=== PATIENT | female | born 2000 | race Caucasian/White ===

== ENCOUNTER 2020-11-07 18:38 | Outpatient (CLI) | payer OTHER ==
[~2020-11-07] VITALS: Ht 162.6 cm; Wt 52.6 kg
[2020-11-07 19:23] LABS: MICROSCOPIC INDICATED
[2020-11-07] MEDS ORDERED: NITR100C56 PO (19:50)
== END 2020-11-07 20:11 | disposition home or self-care (01) ==
LOC: LDOP 18:38
PROVIDERS: ATTEND Obstetrics & Gynecology
DX: O26.892 Other specified pregnancy related conditions, second trimester (principal); N39.0 Urinary tract infection, site not specified; Z3A.21 21 weeks gestation of pregnancy
CPT/HCPCS: 81001; 87086; 99211; G0463

== ENCOUNTER 2021-03-16 17:10 | Inpatient (IN) | payer OTHER ==
[~2021-03-16] VITALS: Ht 160 cm; Wt 41.2 kg
[~2021-03-16 17:10] MED LIST: NITR100C56 PO
[2021-03-16 17:30] VITALS: BP 128/85
[2021-03-16] MEDS ORDERED: D5%-LACTATED RINGERS 1,000 ML IV SCH (19:00)
[2021-03-16] MEDS ORDERED: SODIUM CITRATE/CITRIC ACID 30 ML UDC PO PRN (19:00)
[2021-03-16] MEDS ORDERED: CALCIUM CARBONATE 500 MG TAB.CHEW PO PRN (19:00)
[2021-03-16] MEDS ORDERED: TERBUTALINE 1 MG/ML, 1ML SQ PRN (19:00)
[2021-03-16] MEDS ORDERED: FENTANYL PF 100 MCG/2ML IV PRN (19:00)
[2021-03-16] MEDS ORDERED: METOCLOPRAMIDE 5 MG/ML, 2ML IVPush PRN (19:00)
[2021-03-16] MEDS ORDERED: TERBUTALINE 1 MG/ML, 1ML IVPush PRN (19:00)
[2021-03-16] MEDS ORDERED: OXYTOCIN 30U/ 0.9% NaCL 500ML 500 ML IV ONE (19:00)
[2021-03-16] MEDS ORDERED: OXYTOCIN 30U/ 0.9% NaCL 500ML 500 ML IV PRN (19:00)
[2021-03-16] MEDS ORDERED: ONDANSETRON 2MG/ML, 2ML IVPush PRN (19:00)
[2021-03-16] MEDS ORDERED: LACTATED RINGERS 1,000 ML IV SCH (19:00)
[2021-03-16 19:14] LABS: BASOPHILS % (AUTO) 0 % (0-1); EOSINOPHILS % (AUTO) 2 % (1-7); LYMPHOCYTES % (AUTO) 14 % (22-44); MEAN CORPUSCULAR HEMOGLOBIN 28.8 pg (27.0-34.8); MEAN CORPUSCULAR HGB CONC 32.9 g/dL (32.4-35.8); MEAN PLATELET VOLUME 7.9 fL (7.4-10.4); MONOCYTES % (AUTO) 6 % (2-9); NEUTROPHILS % (AUTO) 78 % (42-75); PLATELET COUNT 335 x10^3/uL (130-400); RED BLOOD COUNT 3.84 x10^6/uL (3.82-5.3); RED CELL DISTRIBUTION WIDTH 14.7 % (9.6-15.2)
[2021-03-16] MEDS ORDERED: NEWBORN KIT ONE (20:48)
[2021-03-16] MEDS ORDERED: LIDOCAINE 1%, 20ML ONE (20:48)
[2021-03-16] MEDS ORDERED: MISOPROSTOL 200 MCG TABLET ONE (20:48)
[2021-03-16] MEDS ORDERED: PNV1TAB.5 PO (21:33)
[2021-03-17] MEDS: FENTANYL PF 100 MCG/2ML IVPush PRN ×2 (07:53→09:05)
[2021-03-17] MEDS ORDERED: FENTANYL/BUPIV./NS/PF 250 ML EPIDCONT ONE (09:24)
[2021-03-17] MEDS ORDERED: BUPIVACAINE 0.25% ONE (09:25)
[2021-03-17] MEDS ORDERED: FENTANYL/BUPIV./NS/PF 250 ML EPIDCONT SCH (09:30)
[2021-03-17] MEDS ORDERED: NALOXONE 0.4 MG/ML, 1ML IVPush PRN (09:30)
[2021-03-17] MEDS ORDERED: EPHEDRINE 50 MG/ML, 1ML IVPush PRN (09:30)
[2021-03-17] MEDS ORDERED: LACTATED RINGERS 1,000 ML IVBOLUS PRN (09:30)
[2021-03-17] MEDS ORDERED: OXYcodone/APAP 5/325MG TABLET PO PRN ×2 (14:30)
[2021-03-17] MEDS ORDERED: MISOPROSTOL 200 MCG TABLET PR PRN (14:30)
[2021-03-17] MEDS ORDERED: ACETAMINOPHEN 325 MG TABLET PO PRN ×2 (14:30)
[2021-03-17] MEDS ORDERED: ONDANSETRON 2MG/ML, 2ML IV PRN (14:30)
[2021-03-17] MEDS ORDERED: SIMETHICONE 80 MG CHEW TAB PO PRN (14:30)
[2021-03-17] MEDS ORDERED: IBUPROFEN 600 MG TABLET PO PRN (14:30)
[2021-03-17] MEDS: OXYTOCIN 30U/ 0.9% NaCL 500ML 500 ML IV SCH (15:40)
[2021-03-17 16:15] VITALS: BP 107/70
[2021-03-17] MEDS ORDERED: CALCIUM CARBONATE 500 MG TAB.CHEW PO PRN (20:30)
[2021-03-17] MEDS: DOCUSATE 100 MG CAPSULE PO PRN (20:34)
[2021-03-17 20:45] VITALS: BP 120/77
[2021-03-17] MEDS: LACTATED RINGERS 1,000 ML IV SCH (20:45)
[2021-03-17 21:10] LABS: BASOPHILS % (AUTO) 0 % (0-1); EOSINOPHILS % (AUTO) 0 % (1-7); LYMPHOCYTES % (AUTO) 13 % (22-44); MEAN CORPUSCULAR HEMOGLOBIN 29.1 pg (27.0-34.8); MEAN PLATELET VOLUME 8.2 fL (7.4-10.4); MONOCYTES % (AUTO) 7 % (2-9); NEUTROPHILS % (AUTO) 79 % (42-75); PLATELET COUNT 306 x10^3/uL (130-400); RED BLOOD COUNT 3.81 x10^6/uL (3.82-5.3); RED CELL DISTRIBUTION WIDTH 14.6 % (9.6-15.2)
[2021-03-18] MEDS: OXYTOCIN 30U/ 0.9% NaCL 500ML 500 ML IV SCH ×2 (00:30→10:30)
[2021-03-18] MEDS: LACTATED RINGERS 1,000 ML IV SCH ×2 (01:30→09:30)
[2021-03-18 02:15] VITALS: BP 117/76
[2021-03-18 07:35] VITALS: BP 111/73
[2021-03-18] MEDS: DOCUSATE 100 MG CAPSULE PO PRN (08:01)
[2021-03-18] MEDS ORDERED: PRENATAL VIT/IRON/FA 1 EACH TABLET PO SCH (09:00)
[2021-03-18 11:45] VITALS: BP 110/73
[2021-03-18] MEDS ORDERED: DOCU-131 PO (14:47)
[2021-03-18] MEDS ORDERED: IBUP-1222 PO (14:47)
== END 2021-03-18 16:15 | disposition home or self-care (01) | DRG 807 ==
LOC: LDOP 17:10 → EDIP 18:34 → LDIP 18:41 → 2NW 03-17 16:00
PROVIDERS: ADMIT Obstetrics & Gynecology; ATTEND Obstetrics & Gynecology
PROC: 10E0XZZ Delivery of Products of Conception, External Approach (ICD-10-PCS; principal; 2021-03-17)
PROC: 3E033VJ Introduction of Other Hormone into Peripheral Vein, Percutaneous Approach (ICD-10-PCS; 2021-03-17)
PROC: 3E0R3BZ Introduction of Anesthetic Agent into Spinal Canal, Percutaneous Approach (ICD-10-PCS; 2021-03-17)
PROC: 00HU33Z Insertion of Infusion Device into Spinal Canal, Percutaneous Approach (ICD-10-PCS; 2021-03-17)
PROC: 0UQMXZZ Repair Vulva, External Approach (ICD-10-PCS; 2021-03-17)
DX: O48.0 Post-term pregnancy (principal); Z37.0 Single live birth; O36.8130 Decreased fetal movements, third trimester, not applicable or unspecified; Z20.822 Contact with and (suspected) exposure to COVID-19; O70.0 First degree perineal laceration during delivery; Z3A.40 40 weeks gestation of pregnancy
CPT/HCPCS: 36415; 76819; 85025; 86592; 86850; 86900; 87635; G0378; J3010; J2590; J7120